=== PATIENT | male | born 1955 | race Caucasian/White ===

== ENCOUNTER 2019-10-15 07:35 | Day surgery (SDC) | payer MEDICARE, MEDICAID ==
[2019-10-14 16:05] LABS: BASOPHILS # (AUTO) 0.1 X10'3 (0-0.2); BASOPHILS % (AUTO) 0.9 % (0-1); EOSINOPHILS # (AUTO) 0.4 X10'3 (0-0.9); EOSINOPHILS % (AUTO) 3.1 % (0-6); HEMATOCRIT 41.3 % (42.0-52.0); HEMOGLOBIN 13.3 g/dl (14.0-17.9); LYMPHOCYTES # (AUTO) 1.8 X10'3 (1.1-4.8); MEAN CORPUSCULAR HEMOGLOBIN 29.3 PG (27.0-31.0); MEAN CORPUSCULAR HGB CONC 32.1 g/dL (33.0-36.5); MEAN CORPUSCULAR VOLUME 91.1 FL (78-98); MEAN PLATELET VOLUME 8.7 FL (7.4-10.4); MONOCYTES # (AUTO) 1.1 X10'3 (0-0.9); MONOCYTES % (AUTO) 9.2 % (2-12); NEUTROPHILS # (AUTO) 8.8 X10'3 (1.8-7.7); NEUTROPHILS % (AUTO) 71.8 % (42-75); PLATELET COUNT 370 X10'3 (140-440); RED BLOOD COUNT 4.54 X10'6 (4.70-6.10); WHITE BLOOD COUNT 12.2 X10'3 (4.5-11.0)
[2019-10-14 16:19] LABS: PARTIAL THROMBOPLASTIN TIME 31 SECONDS (22-32)
[2019-10-14 16:20] LABS: ALANINE AMINOTRANSFERASE 34 U/L (12-78); ALBUMIN 2.9 G/DL (3.4-5.0); ALBUMIN/GLOBULIN RATIO 0.6 (1.1-1.5); ALKALINE PHOSPHATASE 100 IU/L (46-116); ANION GAP 7 (8-16); ASPARTATE AMINO TRANSFERASE 19 U/L (10-37); BILIRUBIN,TOTAL 0.4 MG/DL (0.1-1.0); BLOOD UREA NITROGEN 14 MG/DL (7-18); CALCIUM 8.7 MG/DL (8.5-10.1); CHLORIDE 103 MMOL/L (99-107); CREATININE 1.17 MG/DL (0.60-1.10); GLUCOSE 95 MG/DL (70-104); POTASSIUM 4.2 MMOL/L (3.5-5.1); SODIUM 136 MMOL/L (135-145); TOTAL CARBON DIOXIDE 25.9 MMOL/L (24-32); TOTAL PROTEIN 8.1 G/DL (6.4-8.2); eGFR 62 ML/MIN
[2019-10-15] VITALS (11 sets, daily range): BP systolic 96–129; BP diastolic 57–83
[~2019-10-15] VITALS: Ht 198.1 cm; Wt 87.9 kg
[~2019-10-15 07:35] MED LIST: APIX5TAB3 PO; DORZ10DR10 EACHEYE; GABA-530 PO; LISI2.5T89 PO; METO100T14 PO; NIFE30TA95 PO; PRAV10TA39 PO; XAL0.005OS OP; tamsulosin capsule PO
[2019-10-15] MEDS ORDERED: normal saline 1,000 ML IV SCH (07:55)
[2019-10-15] MEDS ORDERED: diphenhydrAMINE 25mg capsule PO PRN (07:55)
[2019-10-15] MEDS ORDERED: LORazepam 0.5 MG tablet PO PRN (07:55)
[2019-10-15] MEDS ORDERED: nitroGLYCERIN 0.4mg SUBLingual tab SL PRN (07:55)
[2019-10-15] MEDS ORDERED: APIX5TAB3 PO (08:07)
[2019-10-15] MEDS ORDERED: NIFE30TA95 PO (08:07)
[2019-10-15] MEDS ORDERED: LIDOcaine 1% (10mg/ml)w/preservative injection 20ml MDV ONE (09:02)
[2019-10-15] MEDS ORDERED: fentaNYL/PF 50MCG/1 ML 2ML syringe ONE (09:02)
[2019-10-15] MEDS ORDERED: midazolam 2 mg/2 ml injection ONE (09:02)
[2019-10-15] MEDS ORDERED: iohexol 350 MG/ML 50ML vial IV ONE (09:02)
[2019-10-15] MEDS ORDERED: iohexol 350MG/ML 100ml bottle IV ONE (09:03)
[2019-10-15] MEDS ORDERED: ondansetron/PF 4mg/2ml inj IV PRN (10:40)
[2019-10-15] MEDS ORDERED: HYDROcodone/acetaminophen 10/325mg tab PO PRN (10:40)
[2019-10-15] MEDS ORDERED: HYDROcodone/acetaminophen 5mg/325mg tablet PO PRN (10:40)
[2019-10-15] MEDS ORDERED: OXAZEpam 15mg capsule PO PRN (10:40)
[2019-10-15] MEDS ORDERED: normal saline 1000ml 1,000 ML IV SCH (10:40)
[2019-10-15] MEDS ORDERED: proCHLORperazine 10 MG/2 ml inj IV PRN (10:40)
--- NOTE | 2019-10-15 16:51 | NUR ---
Correction pt maintained Doppler pulses on bilateral posterior tibia and dorsalis pedis on the left foot throughout his stay. The dorsalis pedis pulse was absent before the procedure and remained absent after procedure. Skin is warm and pink on bilateral feet.
== END 2019-10-15 16:10 | disposition home or self-care (01) ==
LOC: SSTAY O 07:35
PROVIDERS: ATTEND Internal Medicine Cardiovascular Disease
DX: R94.39 Abnormal result of other cardiovascular function study (principal); I25.10 Atherosclerotic heart disease of native coronary artery without angina pectoris; I48.0 Paroxysmal atrial fibrillation; J44.9 Chronic obstructive pulmonary disease, unspecified; E78.5 Hyperlipidemia, unspecified; I10 Essential (primary) hypertension; F17.210 Nicotine dependence, cigarettes, uncomplicated; F12.90 Cannabis use, unspecified, uncomplicated; Z88.8 Allergy status to other drugs, medicaments and biological substances; Z79.01 Long term (current) use of anticoagulants; Z86.73 Personal history of transient ischemic attack (TIA), and cerebral infarction without residual deficits; Z79.899 Other long term (current) drug therapy
CPT/HCPCS: 36415; 71046; 80053; 85025; 85610; 85730; 93005; 93458; 99152; 99153; C1760; C1769; J1644; J2001; J2250; J3010; J7030; Q0163; Q9967

== ENCOUNTER 2025-02-27 12:30 | Emergency (ER) | payer MEDICARE, MEDICAID ==
[~2025-02-27] VITALS: Ht 198.1 cm; Wt 95.5 kg
[~2025-02-27 12:30] MED LIST changes: -APIX5TAB3 PO; +FOLI1TAB27 PO; -LISI2.5T89 PO; -METO100T14 PO; +MULT-1085 PO; -NIFE30TA95 PO; +NOR5T PO; +PRAV10TA12 PO; -PRAV10TA39 PO; +THIA50TA10 PO; +[UNRECOGNIZED DRUG - CODE] PO; -tamsulosin capsule PO
[2025-02-27 12:40] VITALS: TEMP 98.8
--- NOTE | 2025-02-27 12:51 | ELECTROCARDIOGRAPH REPORT ---
[facility] Test Date: 2025-02-27 Test Time: 12:38:33 Pat Name: LINDA NAIR Department: EMERGENCY ROOM Room: Gender: M [employer] Supervisor: ALISIA : 1955 Requested By: CONG FOFANA Order Number: [id number] Reading MD: Dr. MANUEL Somers Measurements Intervals [place] Rate: 66 P: 50 PA: 185 QRS: -21 QRSD: 98 T: 145 QT: 406 QTc: 426 Interpretive Statements Sinus rhythm Multiform ventricular premature complexes Borderline left axis deviation Low voltage, precordial leads Abnrm T, consider ischemia, anterolateral lds Electronically Signed On 02-28-2025 19:22:[address] MANUEL Somers Please click the below link to view image of tracing.
--- NOTE | 2025-02-27 13:12 | RADIOLOGY REPORT ---
CHEST RADIOGRAPH Indication: CP Technique: Single frontal view of the chest was obtained Comparison: DI CHEST,SINGLE VIEW on DOS: 10/29/24 FINDINGS: Lines and Tubes: None Lungs: No focal consolidation. Pleura: No effusion. No pneumothorax. Cardiomediastinal contours: Unremarkable Bones: No acute osseous abnormality. IMPRESSION: No acute cardiopulmonary disease.
[2025-02-27 13:15] LABS: MEAN PLATELET VOLUME 9.3 FL (7.4-10.4); RED CELL DISTRIBUTION WIDTH 14.4 % (11.5-14.5)
[2025-02-27 13:30] LABS: CREATININE 1.01 MG/DL (0.60-1.10); PRO BRAIN NATRIURETIC PEPTIDE 445 PG/ML (0-125); TOTAL CARBON DIOXIDE 30.6 MMOL/L (24-32); eCRCL 87 ML/MIN; eGFR 73 ML/MIN
--- NOTE | 2025-02-27 16:37 | RADIOLOGY REPORT ---
EXAM: CT CTA AORTA DISECTION W/ IV CONTRAST HISTORY: H/o aortic disection. CP TECHNIQUE: Volumetric multidetector CT images of the abdomen and pelvis were obtained after the administration of intravenous contrast. All CT scans at this facility use dose modulation, iterative reconstruction, and/or weight based dosing when appropriate to reduce radiation dose to as low as reasonably achievable. COMPARISON: CT CTA CHEST AORTA W/ IV CONTRAST on DOS: 11/01/24 FINDINGS: [LOWER CHEST]: The partially visualized lung bases are clear without a pleural effusion. [LIVER]: Normal hepatic size without suspicious focal lesion. [GALLBLADDER AND BILIARY TREE]: No cholelithiasis. [SPLEEN]: Unremarkable. [PANCREAS]: Unremarkable. [ADRENAL GLANDS]: Unremarkable. [KIDNEYS]: Benign left posterior superior kidney cysts. Areas of cortical thinning likely compatible with a prior insult. No hydronephrosis. No nephroureterolithiasis. No suspicious focal lesion. [BLADDER]: Unremarkable for the degree distention. [REPRODUCTIVE ORGANS]: Moderate to severe prostatomegaly. [BOWEL/MESENTERY]: Mild stool burden. Inflammatory stranding with likely reactive small bowel mesenteric root lymph nodes. Stomach is normal. No CT evidence of bowel obstruction. Normal appendix. [ASCITES]: Absent [LYMPHADENOPATHY]: No pathologically enlarged lymph nodes by CT size criteria [VASCULATURE]: Coronary artery calcifications. Mixed atherosclerotic plaque throughout the visualized vasculature. Celiac and superior mesenteric arteries are patent. Normal caliber of the ascending aorta measuring 33 mm on coronal plane. Aortic root at the level of the sinuses of Valsalva measures up to 40 mm, which may be borderline aneurysmal dilated. 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 Appearance of complete occlusion of the right proximal femoral artery (axial 192). [ABDOMINAL WALL]: Small fat containing left inguinal hernia. [MUSCULOSKELETAL]: Trace retrolisthesis L2 over L3 and L3 over L4. No acute fracture or aggressive focal osseous lesion. Multifocal degenerative change of the visualized spine. IMPRESSION: 1. No CT evidence of an acute abdominal/pelvic process. 2. No CT evidence of aortic dissection. 3. 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 5. Inflammatory stranding with likely reactive small bowel mesenteric root lymph nodes. Imaging findings may be seen in the setting of mesenteric adenitis, sclerosing mesenteritis, enteritis, among other etiologies, typically benign 6. Prominence of the main pulmonary artery, which may indicate pulmonary hypertension. 7. Moderate to severe prostatomegaly
--- NOTE | 2025-02-27 17:56 | Physician Documentation ---
Addendum CHIEF COMPLAINT/HPI: The patient is a 69-year-old male with a history of Marfan syndrome and prior aortic dissection treated medically. He is currently on high-dose beta-henri and amlodipine. He presents with left-sided chest wall pain over the past two days. It is clearly related to movement in positions. REVIEW OF SYSTEMS: Constitutional: Denies chills, fatigue, fever, weight gain or weight loss. HEENT: Denies hearing loss, sinus pressure or visual changes. Respiratory: Denies cough, shortness of breath or wheezing. Cardiovascular: Denies chest pain, pain while walking (claudication), edema or palpitations. Gastrointestinal: Denies abdominal pain, blood in stool, constipation, diarrhea, heartburn, loss of appetite, nausea or vomiting. Genitourinary: Denies painful urination (dysuria), excessive amount of urine (polyuria) or urinary frequency. Metabolic/Endocrine: Denies cold intolerance, heat intolerance, excessive thirst (polydipsia) or excessive hunger (polyphagia). Neurological: Denies dizziness, extremity numbness, extremity weakness, headaches, seizures or tremors. Psychiatric: Denies anxiety or depression. Integumentary: Denies breast discharge, breast lump, hives, mole change(s), rash or skin lesion. Musculoskeletal: Denies back pain, joint pain, joint swelling or neck pain. Hematologic: Denies easily bleeding, easily bruises, lymphedema or issues with blood clots. Immunologic: Denies food allergies or seasonal allergies. PHYSICAL EXAMINATION: Vitals and nursing note reviewed. Constitutional: General: Patient is awake, alert, oriented x 4 in no acute distress and well appearing. Speech is clear and lucid. Appearance: Normal appearance. Patient is not ill-appearing, toxic-appearing or diaphoretic. HENT: Head: Normocephalic and atraumatic. Mouth: Mucous membranes are moist. Pharynx: Oropharynx is clear. Eyes: General: No scleral icterus. Extraocular Movements: Extraocular movements intact. Pupils: Pupils are equal, round, and reactive to light. Neck: Supple, no Kernig or Brudzinski sign. Cardiovascular: Rate and Rhythm: Normal rate and regular rhythm. Heart sounds: No murmur heard. Chest: Able to reproduce pain with light pressure Pulmonary: Effort: No respiratory distress. Breath sounds: No wheezing, rhonchi or rales. Abdominal: General: There is no distension. Palpations: There is no fluid wave, hepatomegaly or mass. Tenderness: There is no abdominal tenderness. There is no guarding. Musculoskeletal: General: No swelling or deformity. Skin: Coloration: Skin is not jaundiced. Findings: No erythema or rash. Neurological: Mental Status: Patient is alert. MEDICAL DECISION MAKING: This 69-year-old male with a history of Marfan's and aortic dissection. EKG is reassuring along with serial troponins and CTA with aortic runoff. The pain d oes most resemble musculoskeletal and I have reassured the patient and I am going to discharge him in stable condition. Departure Disposition: 01 HOME / SELF CARE / HOMELESS Impression: Primary Impression: Chest pain with low risk for cardiac etiology Condition: Stable Additional Instructions: Please apply a heating pad, as discussed. Please follow-up with your PCP. Do not hesitate to return here for worsening symptoms or new/unusual symptoms. Education Educated: Patient Educated regarding: diagnosis, treatment, prognosis, need for follow up CONG FOFANA MD Feb 27, 2025 17:56
[2025-02-27 18:11] VITALS: BP 144/74; PULSE 56; O2SAT 95
[2025-02-27 18:23] VITALS: RESP 16
== END 2025-02-27 18:25 | disposition home or self-care (01) ==
LOC: ER 12:31
DX: R07.89 Other chest pain (principal); Z79.899 Other long term (current) drug therapy
CPT/HCPCS: 36415; 71045; 71275; 74174; 80048; 83880; 84484; 85025; 93005; 99285; Q9967